=== PATIENT | male | born 2000 | race Caucasian/White ===

== ENCOUNTER 2021-01-15 12:39 | Emergency (ER) | payer OTHER ==
[~2021-01-15] VITALS: Ht 172.7 cm; Wt 54.5 kg
[2021-01-15 18:07] VITALS: BP 103/56
== END 2021-01-15 18:20 | disposition home or self-care (01) ==
LOC: EMS 12:46
DX: F32.9 Major depressive disorder, single episode, unspecified (principal); F17.200 Nicotine dependence, unspecified, uncomplicated
CPT/HCPCS: 99285; Z7502

== ENCOUNTER 2022-08-19 14:12 | Inpatient (IN) | payer MEDICAID, OTHER ==
[~2022-08-19] VITALS: Ht 167.6 cm; Wt 47.6 kg
[2022-08-19 15:04] LABS: BASOPHILS % (AUTO) 0.9 % (0.0-2.0); EOSINOPHILS % (AUTO) 0.6 % (1.0-6.0); LYMPHOCYTES # (AUTO) 1.1 K/uL (1.0-4.8); LYMPHOCYTES % (AUTO) 24.4 % (22.0-44.0); MEAN CORPUSCULAR HEMOGLOBIN 30.1 pg (26.0-34.0); MEAN CORPUSCULAR VOLUME 88 fL (80-100); MONOCYTES # (AUTO) 0.3 K/uL (0.1-1.0); NEUTROPHILS % (AUTO) 67.1 % (40.0-70.0); PLATELET COUNT (AUTO) 227 K/uL (150-450); RED BLOOD CELL COUNT(AUTO) 4.64 MIL/uL (4.50-5.90); RED CELL DISTRIBUTION WIDTH 13.4 % (11.5-14.5)
[2022-08-19 15:09] LABS: CALCIUM, TOTAL 8.8 mg/dL (8.8-10.5); CARBON DIOXIDE 26 mmol/L (22-29); CHLORIDE 100 mmol/L (98-107); CREATININE 0.84 mg/dL (0.60-1.30); GLOMERULAR FILTR. RATE CALC > 60 mL/min (>60); GLUCOSE,RANDOM 137 mg/dL (70-110)
[2022-08-19 15:15] LABS: ALANINE AMINOTRANSFERASE 11 U/L (12-78); ALBUMIN 4.1 g/dL (3.4-5.0); ALKALINE PHOSPHATASE 76 U/L (46-116); ANION GAP 12 mmol/L (8-16); ASPARTATE AMINOTRANSFERASE 15 U/L (15-37); POTASSIUM 3.5 mmol/L (3.5-5.1); SODIUM SERUM 138 mmol/L (136-145)
[2022-08-19 18:05] LABS: COVID AG,FIA SOURCE NASAL SWAB
[2022-08-19] MEDS ORDERED: LORazepam 2 MG TABLET PO PRN (18:30)
[2022-08-19] MEDS ORDERED: HALOPERIDOL 5 MG TABLET PO PRN (18:30)
[2022-08-20 00:16] VITALS: BP 125/82; PULSE 79; RESP 18; TEMP 97.9
[2022-08-20 08:00] VITALS: BP 105/63; PULSE 66; RESP 16; TEMP 97.4
[2022-08-20] MEDS: ESCITALOPRAM OXALATE 10 MG TABLET PO SCH (10:41)
[2022-08-20] MEDS ORDERED: ALBUTEROL SULFATE HFA 90 MCG/PUFF 8 GM INHALER IH PRN (15:30)
[2022-08-20] MEDS ORDERED: ACETAMINOPHEN 325 MG TABLET PO PRN (15:30)
[2022-08-20] MEDS ORDERED: NICOTINE 14 MG/24 HOUR PATCH TD PRN (15:30)
[2022-08-20] MEDS ORDERED: MAGNESIUM HYDROXIDE SUSPENSION 30 ML UDCUP PO PRN (15:30)
[2022-08-20] MEDS ORDERED: ONDANSETRON HCL 4 MG TABLET PO PRN (15:30)
[2022-08-20] MEDS ORDERED: LOPERAMIDE HCL 2 MG CAPSULE PO PRN (15:30)
[2022-08-20] MEDS ORDERED: PETROLATUM,WHITE 28 GM JELLY TP PRN (15:30)
[2022-08-20] MEDS ORDERED: GuaiFENesin/D-METHORPHAN [SUGAR-FREE] 200-20MG/10 ML SYRUP UDCUP PO PRN (15:30)
[2022-08-20] MEDS ORDERED: DOCUSATE SODIUM 100 MG CAPSULE PO PRN (15:30)
[2022-08-20] MEDS ORDERED: MAG HYDROX/AL HYDROX/SIMETH ES 30 ML SUSPENSION UDCUP PO PRN (15:30)
[2022-08-20] MEDS ORDERED: CloNIDine HCL 0.1 MG TABLET PO PRN (15:30)
[2022-08-20] MEDS ORDERED: IBUPROFEN 400 MG TABLET PO PRN (15:30)
[2022-08-20 20:16] VITALS: BP 109/79; PULSE 79; RESP 18; TEMP 98.3
[2022-08-20] MEDS: ZOLPIDEM TARTRATE 10 MG TABLET PO PRN (22:43)
[2022-08-21 08:05] VITALS: BP 114/56; PULSE 77; RESP 18; TEMP 98.2
[2022-08-21] MEDS: ESCITALOPRAM OXALATE 10 MG TABLET PO SCH (08:37)
[2022-08-21 08:43] LABS: HEMOGLOBIN A1C 5.3 % (3.8-5.6)
[2022-08-21 08:50] LABS: CHOL/HDL RATIO 2.6 (4.2-7.3)
[2022-08-21 09:01] LABS: THYROID STIMULATING HORMONE 1.21 uIU/mL (0.36-3.74)
[2022-08-21] MEDS: ZOLPIDEM TARTRATE 10 MG TABLET PO PRN (21:30)
[2022-08-21 22:12] VITALS: BP 126/69; PULSE 96; RESP 16; TEMP 98.1
[2022-08-22] MEDS: ESCITALOPRAM OXALATE 10 MG TABLET PO SCH (08:49)
[2022-08-22 08:54] VITALS: BP 124/70; PULSE 90; RESP 17; TEMP 98.3
[2022-08-22] MEDS ORDERED: ESCI-8 PO (20:28)
== END 2022-08-22 16:40 | disposition home or self-care (01) | DRG 751 ==
LOC: EMS 14:13 → 3EI 17:26 → UNDOADMIN 17:26 → 3EI 21:00
PROVIDERS: ADMIT Psychiatry & Neurology Child & Adolescent Psychiatry; ATTEND Psychiatry & Neurology Child & Adolescent Psychiatry
DX: F33.2 Major depressive disorder, recurrent severe without psychotic features (principal); R45.851 Suicidal ideations; F41.9 Anxiety disorder, unspecified; G47.00 Insomnia, unspecified; Z20.822 Contact with and (suspected) exposure to COVID-19; R73.9 Hyperglycemia, unspecified; R51.9 Headache, unspecified
CPT/HCPCS: 80053; 80061; 83036; 84443; 85025; 99285; G0480